=== PATIENT | female | born 1990 | race Caucasian/White ===

== ENCOUNTER 2016-08-09 15:36 | Emergency (ER) | payer OTHER | END 2016-08-09 17:53 | disposition home or self-care (01) | LOC: FER 15:36 | DX: J30.2 Other seasonal allergic rhinitis (principal); R05 Cough; J34.89 Other specified disorders of nose and nasal sinuses; F17.210 Nicotine dependence, cigarettes, uncomplicated | CPT/HCPCS: 87450; 99283 ==

== ENCOUNTER 2020-05-27 08:08 | Emergency (ER) | payer OTHER ==
[~2020-05-27 08:08] MED LIST: ADVAIR 100-501 EACH INH; CLARITIN10 M2 PO; DUONEB 2.5-0.5M1 AMP NEB; FLEXERIL10 MG PO; IBUPROFEN800 MG PO; NASONEX NAS120 PUFFS; NORCO 5-325 TA1 EACH PO; PREDNISONE 20MG20 MG PO; SPIRIVA18 MCG INH; WELLBUTRIN75 MG PO
[2020-05-27] MEDS ORDERED: PREDNISONE 20MG20 MG PO (09:04)
== END 2020-05-27 09:11 | disposition home or self-care (01) ==
LOC: FER 08:08
DX: J45.901 Unspecified asthma with (acute) exacerbation (principal); F17.210 Nicotine dependence, cigarettes, uncomplicated; Z79.899 Other long term (current) drug therapy
CPT/HCPCS: 71046; 94664; J2930

== ENCOUNTER 2020-08-01 12:07 | Emergency (ER) | payer OTHER | END 2020-08-01 14:15 | disposition home or self-care (01) | LOC: FER 12:07 | DX: G43.909 Migraine, unspecified, not intractable, without status migrainosus (principal); J45.909 Unspecified asthma, uncomplicated; F17.210 Nicotine dependence, cigarettes, uncomplicated | CPT/HCPCS: J0780; J1885 ==

== ENCOUNTER 2020-08-07 19:23 | Emergency (ER) | payer OTHER ==
[2020-08-07] MEDS ORDERED: FLEXERIL5 MG PO (19:48)
[2020-08-07] MEDS ORDERED: LIDOCAINE 5% P1 EACH TOP (19:48)
== END 2020-08-07 19:56 | disposition home or self-care (01) ==
LOC: FER 19:23
DX: S23.3XXA Sprain of ligaments of thoracic spine, initial encounter (principal); F17.200 Nicotine dependence, unspecified, uncomplicated; X50.9XXA Other and unspecified overexertion or strenuous movements or postures, initial encounter; Y92.89 Other specified places as the place of occurrence of the external cause; Y99.0 Civilian activity done for income or pay
CPT/HCPCS: 99283; J1885

== ENCOUNTER 2021-01-26 13:50 | Emergency (ER) | payer OTHER ==
[~2021-01-26 13:50] MED LIST changes: +FLEXERIL5 MG PO; +LIDOCAINE 5% P1 EACH TOP
[2021-01-26] MEDS ORDERED: RIZATRIPTAN10 M1 PO (16:30)
[2021-01-26] MEDS ORDERED: REGLAN10 MG PO (16:30)
[2021-01-26] MEDS ORDERED: NAPROXEN500 MG PO (16:30)
== END 2021-01-26 16:48 | disposition home or self-care (01) ==
LOC: FER 13:50
DX: G43.909 Migraine, unspecified, not intractable, without status migrainosus (principal); F17.210 Nicotine dependence, cigarettes, uncomplicated
CPT/HCPCS: 96372; 99283; J1885; J3030

== ENCOUNTER 2021-03-25 08:18 | Emergency (ER) | payer OTHER ==
[~2021-03-25 08:18] MED LIST changes: +NAPROXEN500 MG PO; +REGLAN10 MG PO; +RIZATRIPTAN10 M1 PO
[2021-03-25 09:48] LABS: BASOPHIL 0.7 % (0-2); EOSINOPHIL 1.9 % (0-5); HGB 15.1 g/dl (12.5-16.0); LYMPHOCYTE 22.1 % (15-48); MCH 29.5 pg (25.0-31.0); MCHC 34.3 g/dL (32.0-36.0); MCV 85.9 fL (78.0-100.0); MPV 9.4 fL (6.0-9.5); NEUTROPHIL 67.9 % (41-80); NRBC 0; PLT 382 K/uL (150-400); RBC 5.12 M/uL (4.20-5.40)
[2021-03-25 10:46] LABS: ALBUMIN 4.1 g/dL (3.4-5.0); BILIRUBIN - TOTAL 0.4 mg/dL (0.2-1.0); BUN/CREAT RATIO (CALC) 12.8 RATIO; CREATININE 0.94 mg/dL (0.51-0.95); GLOBULIN (CALCULATION) 3.1 g/dL; POTASSIUM 4.3 mmol/L (3.5-5.1); TOTAL PROTEIN 7.2 g/dL (6.4-8.2)
== END 2021-03-25 10:18 | disposition left against medical advice (07) ==
LOC: FER 08:18
PROVIDERS: Emergency Medicine
DX: R10.10 Upper abdominal pain, unspecified (principal); R11.10 Vomiting, unspecified; Z53.8 Procedure and treatment not carried out for other reasons
CPT/HCPCS: 36415; 80053; 82150; 83690; 85025; 99281